=== PATIENT | male | born 1980 | race Caucasian/White ===

== ENCOUNTER 2016-12-17 14:56 | Emergency (ER) | payer OTHER ==
[2016-12-17 14:56] VITALS: BP 141/88; PULSE 83; RESP 14; O2SAT 99
--- NOTE | 2016-12-17 17:32 | ED.REPORT ---
HPI-Abd Pain M Under 40 Date of Service Dec 17, 2016 ED Provider: Kel Talbot MD Patient is a 36 year old male who presents to the ED complaining of bilateral hamstring pain onset 6 days ago. Associated symptoms include lightheadedness, fatigue, diarrhea, abdominal pain, malaise, fatigue, tingling in his arms and throughout his body and bumps on his fingers. He denies itchiness, fever or a change in the color of his eyes. He states that the leg pain started 6 days ago as a light pain but when he woke up the next morning it had turned into a sharp throbbing pain. Patient then tried using heating packs and Acetaminophen without relief. The pain continued and made it difficult for him to work or sit so he decided to go to 5 days ago. He was given a diagnosis of a hamstring sprain and told that his blood work was normal. The next day he began noticing yellow stools and upper abdominal cramping. Patient describes the pain as a dull constant and that it got worse the next day. His leg pain has continued to improve in the last few days but he noticed small bumps on his finger that have not gone away. The patient states that he did have a recent camping trip but does not believe he had any contaminated water and none of his other family members have had any symptoms. Nursing Notes Stated Complaint: ABDOMINAL ISSUES Chief Complaint: Male Abdominal Pain Nursing Notes Reviewed: Yes ([employer] not reconciled) Allergies: Coded Allergies: No Known Allergies (Unverified , 12/17/16) General Time Seen by MD: 17:30 Chief Complaint Other (leg pain) Hx Obtained From: Patient Arrived By: Walk-in Onset Occurred: 6 days ago Symptom Duration: Since onset Progression since Onset: Gradually improving Location: : Abdomen upper Quality: Cramping, Dull Radiation: : Does not radiate Severity: Current: Mild Associated with: Reports: Diarrhea, Denies: Fever Pertinent Negative: Relieved by nothing Recent Healthcare: No recent hospitalization, Recent doctor visit Similar Sx Previous: No Past Medical History Past Medical History Denies Past Surgical History Denies Smoking History Never Smoker Social History Alcohol Use: Denies alcohol use Drug Use: Denies drug use Ambulatory Status Independent Review of Systems Constitutional: Reports: Fatigue, Lethargy, Malaise, Denies: Chills, Fever Respiratory: Denies: Non-productive cough, Shortness of breath GI: Reports: Abdominal pain, Diarrhea, Denies: Nausea, Vomiting Musculoskeletal: Reports: Extremity pain (both legs) Complete sys rev & neg: except as marked. Skin: Reports Rash, Denies Itching Neurologic: Reports: Lightheaded, Numbness, Denies: Vision change, Weakness Physical Exam Initial Vital Signs Vital Signs (First) Date Time Temp Pulse Resp B/P Pulse Ox O2 Delivery O2 Flow Rate FiO2 12/17/16 14:56 36.8 83 14 141/88 99 Room Air Initial VS: Reviewed, Vital signs normal General/Constitutional: Awake, Alert, No acute distress Respiratory / Chest: Atraumatic, Breath sounds NL, Breath sounds = bilat, No respiratory distress Cardiovascular: Heart rate NL, Regular rhythm, Heart sounds NL Abdomen: Atraumatic, Soft, Non-tender Back: Atraumatic, Non-tender Head / Eyes: Atraumatic, Normocephalic, PERRL, EOMI Neurologic: Oriented X3, Speech NL, No motor deficits, No sensory deficits Upper Extremity / MS: Atraumatic, Full range of motion Lower Extremity / Pelvis / MS: Atraumatic, Inspection NL, No deformity Skin: Atraumatic, Color NL, No rash, Warm, Dry Interpretation & Diagnostics Lab Results Interpretation Result Diagram: 12/17/165 12/17/161854 Test 12/17/16 17:20 12/17/16 18:55 Hold Urine Received (Received) White Blood Count 6.0th/mm3 (3.8-10.1) Red Blood Count 4.85mil/mm3 (4.40-5.80) Hemoglobin 15.0g/dL (13.8-17.2) Hematocrit 43.3% (41.0-50.0) Mean Corpuscular Volume 89.3fL (81-100) Mean Corpuscular Hemoglobin 30.9pg (27.0-35.0) Mean Corpuscular Hemoglobin Concent 34.6% (32.0-37.0) Red Cell Distribution Width 12.1% (12.3-15.4) Platelet Count 195bil/L (150-400) Neutrophils (%) (Auto) 66.1% (40-74) Lymphocytes (%) (Auto) 24.7% (14-46) Monocytes (%) (Auto) 6.2% (4-12) Eosinophils (%) (Auto) 2.0% (0-5) Basophils (%) (Auto) 0.5% (0-3) Sodium Level 138mEq/L (134-144) Potassium Level 4.0mEq/L (3.5-5.2) Chloride Level 99mEq/L (97-108) Carbon Dioxide Level 25mmol/L (18-29) Blood Urea Nitrogen 19mg/dL (6-20) Creatinine 0.78mg/dL (0.76-1.27) Estimat Glomerular Filtration Rate 120mL/min (>59) Glucose Level 88mg/dL (60-99) Calcium Level 9.3mg/dL (8.5-10.1) Total Bilirubin 0.6mg/dL (0.0-1.2) Aspartate Amino Transf (AST/SGOT) 34U/L (0-50) Alanine Aminotransferase (ALT/SGPT) 65U/L (0-44) Alkaline Phosphatase 63U/L (25-150) Total Creatine Kinase 212U/L (21-232) Total Protein 7.5g/dL (6.4-8.4) Albumin 4.6g/dL (3.4-5.0) Lab Results Interpretation: CBC normal CMP normal Lipase normal Stool studies pending CT Abd / Pelvis Interpretation IMPRESSION: Overall, no acute abnormality seen. The appendix is not clearly identified however no suspicious right lower quadrant inflammatory changes. Recommend clinical correlation Large amount of stool suggesting constipation. Dictated by: Darnell Lopez M.D. on 12/17/2016 at 20:57 Approved by: Darnell Lopez M.D. on 12/17/2016 at 21:02 Interpretation / Wet Read by: Interpret - Radiologist Re-Eval/Medical Decision Med Decision/Clinical Course This is a 36-year-old male presents complaining of abdominal discomfort and diarrhea. He also reports pale, yellow stools. He also reports a constellation of symptoms that includes profound fatigue. He had leg cramps last week in the posterior hamstrings that were fairly disabling. He also reports profound fatigue, possibly a fever. This is entirely unusual as he generally extremely healthy. He denies any ill contacts, food borne illnesses or exposure, travel history. He reports hei is extremely fit generally and was planning section at [facility] but had to cancel. He is also to 4 days off from work and rested. He was seen in urgent care where he claims he was told his leg pain was from muscle strains, but he does not think that is the case as he reports no activities that should cause strain, nor would he expect bilateral symptoms. he had no swelling. He had no risk factors for DVT or PE. he reports the leg cramps in the hamstrings have resolved, but the abdominal discomfort has persisted, the diarrhea is persistent, and he still feels poorly after week-70s return for repeat visit. He is very concerned about severe abdominal pathology. The patient clinically appears quite well. He does not appear toxic or acutely ill. He has normal vitals. His abdomen is fairly benign without localized tenderness. There is no Deal sound, there is no guarding, no rebound, no epigastric tenderness. Also patient is highly concerned, clinically appears well-but this is second provider visit following several days, and persistent symptoms for a week-so this point a laboratory and radiographic evaluations performed: Her blood work, and CT scan were negative. The patient is reassured, I do not find indication for additional testing. The patient is being discharged with routine and return precautions. Patient provided a stool sample, and a stool PCR panel is pending-is advised to call for results tomorrow. Source of Hx: Old records Re-Evaluation/Progress : Time of Eval: 21:16 Re-Evaluation/Progress Note: Discussed CT results and plan for discharge. Patient understands and agrees to plan. All questions were addressed. Differential Diagnosis: Positive: Acute abdominal pain, Negative: Abscess, Aortic dissection, Appendicitis, C. diff colitis, Contusion abdominal wall, Esophageal rupture, Gun shot wound abdomen, Stab wound abdomen, Urolithiasis, Volvulus Counseled Regarding: Diagnosis, Lab results, Need for follow-up, When/why to return to ED Patient Discharge & Departure Primary Impression: Abdominal pain Abdominal location: upper abdomen, unspecified Qualified Code: R10.10 - Upper abdominal pain, unspecified Disposition: Home Discharge Condition All VS Reviewed: Yes Condition: Stable Additional Instructions: 1. A dangerous cause of the abdominal symptoms was not identified. 2. Your CT scan was normal - with no signs of a liver problem, or infection. 3. Your blood tests were normal. 4. Your electrolytes and kidney functions were normal. 5. Your stool tests will take ~1 day for results - call [phone] for results tomorrow afternoon. 6. Activities and diet as tolerated. 7. Symptoms are expected to improve with time. 8. Return if new or worsening symptoms occur. Referrals: [facility] Scribe Attestation Portions of this note were transcribed by Casandra Weems. I, Dr. Talbot personally performed the history, physical exam and medical decision-making; I reviewed and confirmed the accuracy of the information in the transcribed note. Signed by: Casandra Gold, 12/17/16 copies to: [facility] Kel Talbot MD Dec 17, 2016 17:32 Atiya Weems Dec 17, 2016 17:50
[2016-12-17 18:53] VITALS: BP 143/94; PULSE 80; RESP 16; O2SAT 97
[2016-12-17 18:59] LABS: BASOPHILS % (AUTO) 0.5 % (0-3); MONOCYTES % (AUTO) 6.2 % (4-12); Mean Corpuscular Hemoglobin 30.9 pg (27.0-35.0); Mean Corpuscular Volume 89.3 fL (81-100); NEUTROPHILS % (AUTO) 66.1 % (40-74); Platelet Count 195 bil/L (150-400)
--- NOTE | 2016-12-17 21:04 | DRSVH ---
PROCEDURE: CT ABDOMEN AND PELVIS WITH CONTRAST ([id number]) INDICATIONS: abd pain TECHNIQUE: After the administration of intravenous contrast, 5 mm thick sections acquired from the diaphragm to the symphysis. 5 mm coronal and sagittal reformats were acquired. For radiation dose reduction, the following was used: automated exposure control, adjustment of mA and/or kV according to patient siz e. COMPARISON: None. FINDINGS: Image quality: Excellent. ABDOMEN: Lung bases: Lung bases are clear. Heart size is normal. Solid organs: Indeterminate 3 mm hepatic hypodensity seen on image 32 which is too small to character ize. Otherwise liver and spleen are normal in size and enhancement. Gallbladder negative. Biliary s ystem is non dilated. Pancreas enhances normally. No adrenal nodules. Kidneys demonstrate normal s ize and enhancement, without hydronephrosis. Peritoneum and bowel: Bowel loops demonstrate normal wall thickness and caliber. No free fluid or a ir. The appendix is not clearly identified. No pericecal inflammatory changes. There is a large amou nt of stool. Nodes and vessels: No retroperitoneal or mesenteric adenopathy by size criteria. Aorta and inferior vena cava are normal in size. Miscellaneous: No ventral hernias. PELVIS: Genitourinary: Bladder wall thickness is normal. Miscellaneous: No inguinal hernias or adenopathy. Bones: No suspicious bony lesions. No vertebral body compression fractures. IMPRESSION: Overall, no acute abnormality seen. The appendix is not clearly identified however no suspicious righ t lower quadrant inflammatory changes. Recommend clinical correlation Large amount of stool suggesting constipation. Dictated by: Darnell Lopez M.D. on 12/17/2016 at 20:57 Approved by: Darnell Lopez M.D. on 12/17/2016 at 21:02
[2016-12-17 21:34] VITALS: BP 128/94; PULSE 76; RESP 14; O2SAT 99
== END 2016-12-17 21:32 | disposition home or self-care (01) ==
LOC: SED 14:56
DX: R10.10 Upper abdominal pain, unspecified (principal); R42 Dizziness and giddiness; R53.83 Other fatigue; R19.7 Diarrhea, unspecified; M79.604 Pain in right leg; M79.605 Pain in left leg
CPT/HCPCS: 36415; 74177; 80053; 82550; 85025; 87507; 99284; Q9967